=== PATIENT | female | born 1995 | race Caucasian/White ===

== ENCOUNTER 2021-01-15 11:15 | Emergency (ER) | payer OTHER ==
[2021-01-15] MEDS ORDERED: Acetaminophen 500 MG TAB ONE (12:27)
== END 2021-01-15 14:10 | disposition home or self-care (01) ==
LOC: CSHERS 11:15
DX: O21.9 Vomiting of pregnancy, unspecified (principal); Z3A.12 12 weeks gestation of pregnancy
CPT/HCPCS: 99283

== ENCOUNTER 2021-02-15 16:20 | Emergency (ER) | payer OTHER ==
[2021-02-15] MEDS ORDERED: Ondansetron PF 4 MG/2 ML Vial ONE (17:32)
[2021-02-15 17:54] LABS: #Eosinphils 0.1 10x3/uL (0.0-0.5); #Monocytes 0.4 10x3/uL (0.0-1.1); #Neutrophils 5.7 10x3/uL (1.5-8.4); %Basophils 0.3 % (0.0-2.0); %Lymphocytes 21.1 % (18.0-47.0); %Monocytes 4.7 % (0.0-10.0); %Neutrophils 72.6 % (40.0-75.0); Hemoglobin 12.2 g/dL (12.0-15.5); Mean Corpuscular HGB CONC 33.6 g/dL (32.0-36.0); Mean Corpuscular Hemoglobin 29.3 pg (27.0-33.0); Mean Corpuscular Volume 87.3 fl (81.6-98.3); Mean Platelet Volume 10.1 fl (7.4-10.4); Platelet Count 256 10x3/uL (150-450); RBC Distribution Width 13.2 % (11.5-14.5); Red Blood Cell (RBC) Count 4.16 10x6/uL (3.90-5.03); White Blood Cell (WBC) Count 7.9 10x3/uL (3.5-10.5)
[2021-02-15 18:08] LABS: ALT (SGPT) 10 U/L (8-55); AST (SGOT) 9 U/L (5-34); Albumin 3.8 g/dL (3.5-5.0); Alkaline Phosphatase 43 U/L (40-110); Anion Gap 13 mmol/L (10-20); BUN (Urea Nitrogen) 5 mg/dL (7.0-18.7); Bilirubin, Total 0.3 mg/dL (0.2-1.2); Calc. Creatinine Clearance 0 mL/min (70-130); Calcium 8.9 mg/dL (7.8-10.44); Carbon Dioxide 23 mmol/L (22-29); Chloride 105 mmol/L (98-107); Globulin 2.7 g/dL (2.4-3.5); Glucose 90 mg/dL (70-105); Lipase 18 U/L (8-78); Potassium 3.8 mmol/L (3.5-5.1); Protein, Total 6.5 g/dL (6.0-8.3); Sodium 137 mmol/L (136-145)
[2021-02-15 19:04] LABS: Bilirubin Neg (Negative); Blood, Urine Negative (Negative); Clarity Cloudy (Clear); Glucose, Urine (Dipstick) Normal (Negative); Ketone, Urine Negative (Negative); Leukocyte 25 (Negative); Nitrite Negative (Negative); Protein, Urine (Dipstick) Negative (Neg-Trace); Specific Gravity, Urine 1.015 (1.002-1.036)
[2021-02-15 19:12] LABS: Bacteria/HPF 2+ HPF (None Seen); Mucous/LPF None Seen LPF (<2+); RBC/HPF None Seen HPF (0-3); WBC/HPF 0-3 HPF (0-3)
== END 2021-02-15 19:26 | disposition home or self-care (01) ==
LOC: CSHERS 16:20
DX: O21.0 Mild hyperemesis gravidarum (principal); O99.891 Other specified diseases and conditions complicating pregnancy; E86.0 Dehydration; Z3A.16 16 weeks gestation of pregnancy
CPT/HCPCS: 76815; 80053; 81003; 81015; 83690; 85025; 86900; 86901; 96374; J2405

== ENCOUNTER 2021-07-02 14:28 | Day surgery (SDC) | payer OTHER, SELFPAY ==
[2021-07-02 17:52] VITALS: BMI 25.4
== END 2021-07-02 16:56 | disposition home or self-care (01) ==
LOC: CSHLD/OP 14:28
PROVIDERS: ATTEND Obstetrics & Gynecology
DX: O47.03 False labor before 37 completed weeks of gestation, third trimester (principal); Z3A.36 36 weeks gestation of pregnancy
CPT/HCPCS: 99283

== ENCOUNTER 2021-07-20 07:51 | Outpatient (CLI) | payer OTHER ==
[2021-07-20 20:27] LABS: SARS-CoV-2 PCR by NAA Not Detected (NotDetected)
== END 2021-07-20 07:52 | disposition home or self-care (01) ==
LOC: CSHLAB 07:51
PROVIDERS: ATTEND Obstetrics & Gynecology
DX: Z20.822 Contact with and (suspected) exposure to COVID-19 (principal)
CPT/HCPCS: U0003; U0005

== ENCOUNTER 2021-07-23 00:55 | Inpatient (IN) | payer BC, OTHER ==
[~2021-07-23 00:55] MED LIST: Acetaminophen 500 MG TAB PO PRN; Butorphanol Tartrate 1 MG/ML VIAL SLOW IVP PRN; Carboprost 250 MCG/ML AMP IM PRN; Diphenoxylate HCl/Atropine Tablet PO PRN; Docusate 100 MG CAP PO PRN; HYDROcodone/Acetaminophen 5/325 mg Tablet PO PRN; Ibuprofen 800 MG TAB PO PRN; Lidocaine 1% (PF) 30 ML VIAL SC PRN; Methylergonovine 0.2 MG/ML VIAL IM PRN; Misoprostol 200 MCG TAB PR PRN; Ondansetron PF 4 MG/2 ML Vial IVP PRN; Promethazine HCl 25 MG/ML VIAL IM PRN; hydrALAZINE 20 MG/ML VIAL SLOW IVP PRN
[2021-07-23] MEDS ORDERED: NS w/ Oxytocin 30 units 500 ML IV SCH ×3 (06:30→22:00)
[2021-07-23] MEDS ORDERED: Lactated Ringer's 1,000 ML IV SCH (06:30)
[2021-07-23 10:02] LABS: Hemoglobin 8.7 g/dL (12.0-15.5); Mean Corpuscular HGB CONC 31.2 g/dL (32.0-36.0); Mean Corpuscular Hemoglobin 23.6 pg (27.0-33.0); Mean Corpuscular Volume 75.6 fl (81.6-98.3); Mean Platelet Volume 11.2 fl (7.4-10.4); Platelet Count 212 10x3/uL (150-450); RBC Distribution Width 13.4 % (11.5-14.5); Red Blood Cell (RBC) Count 3.69 10x6/uL (3.90-5.03)
[2021-07-23 10:09] VITALS: BMI 26.1
[2021-07-23 10:36] LABS: Hep B Surf Ag Non-Reactive S/CO (NonReactive)
[2021-07-23 10:37] LABS: Syphilis Antibody Nonreactive (Nonreactive); Syphilis Antibody Index 0.03 S/CO (<1.00 Non-Reactive)
[2021-07-23 10:45] LABS: HBSAg Index 0.16 S/CO (0-0.99)
[2021-07-23] MEDS ORDERED: Fentanyl 2 mcg/Bup 0.1% Cadd 100 ML ONE (16:25)
[2021-07-23] MEDS ORDERED: Acetaminophen 325 MG TAB PO PRN (16:56)
[2021-07-23] MEDS ORDERED: ePHEDrine Sulfate 50 MG/10 ML VIAL SLOW IVP PRN (16:56)
[2021-07-23] MEDS ORDERED: Naloxone HCl 0.4 mg/ml Vial IVP PRN ×2 (16:56)
[2021-07-23] MEDS ORDERED: Moisturizing Cream (Eucerin) 113 GM JAR TOP PRN (16:56)
[2021-07-23] MEDS ORDERED: diphenhydrAMINE 50 MG/ML VIAL IVP PRN (16:56)
[2021-07-23] MEDS ORDERED: Promethazine HCl 25 MG/ML VIAL IM PRN ×2 (16:56→22:43)
[2021-07-23] MEDS ORDERED: Ondansetron PF 4 MG/2 ML Vial IVP PRN ×2 (16:56→22:43)
[2021-07-23] MEDS ORDERED: Communication Order-Pharmacy FS SCH (17:00)
[2021-07-23] MEDS ORDERED: Fentanyl 2 mcg/Bupivacaine 0.1% Cassette 100 ML EPIDURAL SCH (17:00)
[2021-07-23] MEDS ORDERED: Lactated Ringer's 500 ML IV PRN (17:22)
[2021-07-23] MEDS ORDERED: Measles/Mumps/Rubella 10 MCG/0.5 ML VIAL SC ONE (22:43)
[2021-07-23] MEDS ORDERED: Misoprostol 200 MCG TAB VAG PRN (22:43)
[2021-07-23] MEDS ORDERED: HYDROcodone/Acetaminophen 5/325 mg Tablet PO PRN (22:43)
[2021-07-23] MEDS ORDERED: Zolpidem Tartrate 5 MG TAB PO PRN (22:43)
[2021-07-23] MEDS ORDERED: Boostrix 0.5 ML (Tdap) VIAL IM ONE (22:43)
[2021-07-23] MEDS ORDERED: Methylergonovine 0.2 MG TAB PO PRN (22:43)
[2021-07-23] MEDS ORDERED: hydrALAZINE 20 MG/ML VIAL SLOW IVP PRN (22:43)
[2021-07-23] MEDS ORDERED: Lanolin Ointment 7 GM TUBE TOP PRN (22:43)
[2021-07-23] MEDS ORDERED: Milk Of Magnesia 30 ML UDCUP PO PRN (22:43)
[2021-07-23] MEDS ORDERED: Bisacodyl 10 MG SUPP PR PRN (22:43)
[2021-07-23] MEDS ORDERED: diphenhydrAMINE 25 MG CAP PO PRN (22:43)
[2021-07-23] MEDS ORDERED: Preparation H Ointment 28 GM TUBE PR PRN (22:43)
[2021-07-23] MEDS ORDERED: Benzocaine-Menthol 82.5 ML CAN TOP PRN (22:43)
[2021-07-23] MEDS ORDERED: Varicella virus, LIVE 0.5 ML VIAL SC ONE (22:43)
[2021-07-23] MEDS ORDERED: Ibuprofen 800 MG TAB PO SCH (23:15)
[2021-07-23] MEDS ORDERED: Docusate 100 MG CAP PO SCH (23:15)
[2021-07-24 04:28] LABS: Hemoglobin 7.8 g/dL (12.0-15.5); Mean Corpuscular Hemoglobin 23.9 pg (27.0-33.0); Mean Corpuscular Volume 77.1 fl (81.6-98.3); Mean Platelet Volume 11.4 fl (7.4-10.4); Platelet Count 176 10x3/uL (150-450); RBC Distribution Width 13.2 % (11.5-14.5); Red Blood Cell (RBC) Count 3.27 10x6/uL (3.90-5.03); White Blood Cell (WBC) Count 10.1 10x3/uL (3.5-10.5)
[2021-07-24] MEDS: Ibuprofen 800 MG TAB PO SCH ×3 (05:32→21:47)
[2021-07-24] MEDS: Prenatal Vitamin 1 TAB PO SCH (08:25)
[2021-07-24] MEDS: Ferrous Sulfate 325 MG TAB PO SCH ×2 (08:25→16:32)
[2021-07-24] MEDS: Docusate 100 MG CAP PO SCH ×2 (08:25→21:47)
[2021-07-25] MEDS: Ibuprofen 800 MG TAB PO SCH (05:46)
[2021-07-25] MEDS: Prenatal Vitamin 1 TAB PO SCH (09:51)
[2021-07-25] MEDS: Docusate 100 MG CAP PO SCH (09:52)
[2021-07-25] MEDS: Ferrous Sulfate 325 MG TAB PO SCH (09:52)
[2021-07-25 10:42] VITALS: BP 121/83; TEMP 97.8
== END 2021-07-25 13:35 | disposition home or self-care (01) | DRG 807 ==
LOC: CSHLD 05:38 → CSHPED 22:25
PROVIDERS: ADMIT Obstetrics & Gynecology; ATTEND Obstetrics & Gynecology
PROC: 10E0XZZ Delivery of Products of Conception, External Approach (ICD-10-PCS; principal; 2021-07-23)
DX: O70.0 First degree perineal laceration during delivery (principal); Z37.0 Single live birth; Z3A.39 39 weeks gestation of pregnancy
CPT/HCPCS: 36415; 51702; 85027; 86780; 86850; 86900; 86901; 87340; J0595; J2590

== ENCOUNTER 2022-03-29 10:58 | Day surgery (SDC) | payer OTHER ==
[2022-03-26 08:48] VITALS: BMI 22.3
[2022-03-26 15:32] LABS: Hemoglobin 12.2 g/dL (12.0-15.5); Mean Corpuscular HGB CONC 31.9 g/dL (32.0-36.0); Mean Corpuscular Hemoglobin 25.5 pg (27.0-33.0); Platelet Count 358 10x3/uL (150-450); RBC Distribution Width 12.6 % (11.5-14.5); Red Blood Cell (RBC) Count 4.79 10x6/uL (3.90-5.03); White Blood Cell (WBC) Count 8.9 10x3/uL (3.5-10.5)
[2022-03-29] MEDS ORDERED: CEFAZOLIN 2 GM VIAL ONE (13:16)
[2022-03-29] MEDS ORDERED: Midazolam HCl 2 mg/2 ml Vial ONE (13:24)
[2022-03-29] MEDS ORDERED: PROPOFOL 20 ML ONE ×2 (13:24→13:40)
[2022-03-29] MEDS ORDERED: Fentanyl 100 MCG/2 ML VIAL ONE (13:24)
[2022-03-29] MEDS ORDERED: Dexamethasone 20 MG/5 ML VIAL ONE (13:25)
[2022-03-29] MEDS ORDERED: Glycopyrrolate 0.2 MG/ML 5 ML SYRINGE ONE (13:25)
[2022-03-29] MEDS ORDERED: Ondansetron PF 4 MG/2 ML Vial ONE (13:25)
[2022-03-29] MEDS ORDERED: Ketorolac Tromethamine 30 MG/ML VIAL ONE ×2 (13:25)
== END 2022-03-29 15:20 | disposition home or self-care (01) ==
LOC: CSHSDC 10:58
PROVIDERS: ATTEND Obstetrics & Gynecology
PROC: 10D17ZZ Extraction of Products of Conception, Retained, Via Natural or Artificial Opening (ICD-10-PCS; principal; 2022-03-29)
DX: O02.1 Missed abortion (principal)
CPT/HCPCS: 85027; 86850; 86900; 86901; 88305; J1100; J1885; J2250; J2405; J2704; J3010

== ENCOUNTER 2022-03-30 20:11 | Emergency (ER) | payer OTHER ==
[2022-03-30] MEDS ORDERED: Acetaminophen 500 MG TAB ONE (22:06)
[2022-03-30] MEDS ORDERED: Ketorolac Tromethamine 30 MG/ML VIAL ONE (22:07)
[2022-03-30 22:32] LABS: #Basophils 0.1 10x3/uL (0.0-0.2); #Eosinphils 0.1 10x3/uL (0.0-0.5); #Monocytes 0.5 10x3/uL (0.0-1.1); #Neutrophils 5.7 10x3/uL (1.5-8.4); %Basophils 0.6 % (0.0-2.0); %Eosinophils 0.5 % (0.0-6.0); %Lymphocytes 36.7 % (18.0-47.0); Hemoglobin 11.3 g/dL (12.0-15.5); Mean Corpuscular HGB CONC 32.4 g/dL (32.0-36.0); Mean Corpuscular Hemoglobin 26.1 pg (27.0-33.0); Mean Corpuscular Volume 80.6 fl (81.6-98.3); Mean Platelet Volume 10.7 fl (7.4-10.4); Platelet Count 340 10x3/uL (150-450); RBC Distribution Width 12.8 % (11.5-14.5); Red Blood Cell (RBC) Count 4.33 10x6/uL (3.90-5.03); White Blood Cell (WBC) Count 10.1 10x3/uL (3.5-10.5)
[2022-03-30 22:46] LABS: ALT (SGPT) 6 U/L (8-55); AST (SGOT) 11 U/L (5-34); Alkaline Phosphatase 60 U/L (40-110); Anion Gap 11 mmol/L (10-20); BUN (Urea Nitrogen) 16 mg/dL (7.0-18.7); Bilirubin, Total 0.2 mg/dL (0.2-1.2); Calc. Creatinine Clearance 0 mL/min (70-130); Calcium 8.6 mg/dL (7.8-10.44); Carbon Dioxide 26 mmol/L (22-29); Chloride 109 mmol/L (98-107); Estimated GFR 116; Globulin 2.6 g/dL (2.4-3.5); Glucose 96 mg/dL (70-105); Potassium 3.7 mmol/L (3.5-5.1); Protein, Total 6.6 g/dL (6.0-8.3); Sodium 142 mmol/L (136-145)
== END 2022-03-31 01:27 | disposition home or self-care (01) ==
LOC: CSHERS 20:11
DX: R34 Anuria and oliguria (principal); R10.2 Pelvic and perineal pain
CPT/HCPCS: 36415; 76856; 80053; 83605; 85025; 87480; 87510; 87660; J1885